=== PATIENT | female | born 1955 | race Hispanic/Latino ===

== ENCOUNTER 2019-03-13 04:08 | Emergency (ER) | payer OTHER ==
[~2019-03-13] VITALS: Ht 162.6 cm; Wt 74.8 kg
--- OUTSIDE RECORDS SUMMARY | 2019-03-13 04:10 | XMS REPORT | Encounter Summary ---
Author Organization Unknown Address [address] [place] [address] Phone [phone] Reason for Visit Right Medical Complaint Instructions 1. Acute tonsillitis tonsillitis: care instructions cefdinir 300 mg capsule Lidocaine Viscous 2 % mucosal solution rapid strep group A, throat culture, respiratory 2. Otalgia of right ear 3. Body mass index 25-29 - overweight body mass index: care instructions 4. Elevated blood-pressure reading without diagnosis of hypertension elevated blood pressure: care instructions Discussion Note Pt is in NAD; Verbalizes understanding of all instructions with no questions at this time. Plan of Care Patient Instructions Stop erythromycin. Gargle and spit viscous lidocaine as needed for sore throat as directed. Alternate with Ibuprofen and acetaminophen every 4hrs as needed for pain/fever. Proper hydration and rest. Take antibiotics as directed. Do not share any utensils/cups, no kissing and change toothbrush after 24-48 hrs of antibiotic use. Take medications as prescribed. Follow up with your PCP within 2-3 days if symptoms worsen as discussed. Recommend monitor BP at home and document, bring BP log to PCP for review. Recommend follow a low sodium/fat/carb diet and exercise 30-45 mins/d 3-4 days a week once symptoms resolve. Reminders Provider Appointments None recorded. Lab Rapid Strep Group a, Throat 01/22/2018 [facility] Culture, Respiratory 01/22/2018 [facility] Referral None recorded. Procedures None recorded. Surgeries None recorded. Imaging None recorded. Medications Name Start Date cefdinir 300 mg capsule Take 1 capsule every 12 hours by oral route as directed for 10 days. dicyclomine 10 mg capsule ergocalciferol (vitamin D2) 50,000 unit capsule famotidine 40 mg tablet TK 1 T PO D fenofibrate 40 mg tablet Take 2 tablets every day by oral route. Lidocaine Viscous 2 % mucosal solution Take 15 mL every 3 hours by oral route. Linzess 72 mcg capsule metoclopramide 10 mg tablet pravastatin 40 mg tablet TK 1 T PO D Premarin 0.625 mg tablet TK 1 T PO D sucralfate 1 gram tablet Medications Administered None recorded. Vitals Height Weight BMI Blood Pressure 5 ft 4 in 152 lbs 26.1 kg/m2 122/80 mm[Hg] Lab Results Date Name Specimen Result Interpretation Description Value Range Status Address Rapid Strep Group a, Throat Result negative [facility]: [address] [place] [address] Swab Location Left and Right tonsillar pillars [facility]: [address] [place] [address] Allergies Code Code System Name Reaction Severity Status Onset 20341123 RxNorm Cipro Active 2669 RxNorm Codeine Active 20420627 RxNorm Skelaxin Active RxNorm Tramadol Active Problems Name Status Onset Date Source Hyperlipidemia Active 01/22/2018 Body Mass Index 25-29 - Overweight Active 01/22/2018 Acute Tonsillitis Active 01/22/2018 Gastritis Active 01/22/2018 Elevated Blood-pressure Reading without Diagnosis of Hypertension Active 01/22/2018 Otalgia of Right Ear Active 01/22/2018 Procedures Date Name Performed by Cholecystectomy Information not available Hysterectomy Information not available Vaccine List Vaccine Type influenza, unspecified formulation 03/19/2017 Tdap 06/23/2016 Social History Smoking Status Never Smoker Past Encounters 01/22/2018 Acute Tonsillitis; Otalgia of Right Ear; Body Mass Index 25-29 - Overweight; Elevated Blood-pressure Reading without Diagnosis of Hypertension Cora Hough, HAMMER OPERATOR-C: [address] [place] [address], Ph. History of Present Illness Throat-Oral Complaint Reported By: Patient HPI: Location: throat. Quality: sore throat. Severity: moderate, pain level 7/10. Duration: 3 days. Onset/Timing: sudden. Context: no sick contacts, non-smoker, foreign travel; Pt reports she went to [place] and saw an MD there and without being tested pt was started on erythromycin with no relief. Modifying factors: OTC medication. Associated Symptoms: no fever, no headache, no body aches, no sputum production, no shortness of breath, no wheezing, no change in number of pillows needed to sleep at night, no sweats, no significant weight gain, no significant weight loss, no morning cough, no vomiting, no diarrhea, no rash, no nausea, sore throat; right ear pain Ear Complaint Reported By: Patient HPI: Location: right. Quality: sharp, aching. Severity: continuous, moderate, current pain 7/10. Duration: constant; X 3 days. Onset/Timing: worse, abrupt onset. Context: no sick contacts, no recent swimming/water in ear, no exposure to second hand smoke, no head trauma, not grinding teeth, no recent air travel. Modifying factors: does not hurt to lie on, or pull on ear, does not hurt to chew, OTC medication. Associated Symptoms: no discharge from the ears, no nose/sinus problems, no popping noise in the ears, no ringing in the ears, no fever, no chills, no dizziness, no vertigo, no headache, no muscle aches, earache; sore throat Review of Systems Basic Reported By: Patient Constitutional: Constitutional: no fever Eyes: Eyes: no eye complaints Aygn-Nnts-Ogjky-Throat: Ears: ear pain. Nose: no nose/sinus problems. Mouth/Throat: no bleeding gums, no mouth complaints, no teeth problems, sore throat Cardiovascular: Cardiovascular: no chest pain, no shortness of breath, no known heart murmur Respiratory: Respiratory: no cough, no wheezing, no shortness of breath Gastrointestinal: Gastrointestinal: no abdominal pain, no vomiting / diarrhea Genitourinary: Genitourinary: no urinary complaints, no discharge Musculoskeletal: Musculoskeletal: no muscle aches, no muscle weakness, no arthralgias/joint pain, no back pain Skin: Skin: no abnormal / changing mole, no jaundice, no rashes Neurologic: Neurologic: no loss of consciousness, no weakness, no numbness, no seizures, no dizziness, no headaches Physical Exam Adult Basic, Adult Female Complete Reported By: Patient Constitutional: General Appearance: healthy-appearing, well-nourished, well-developed, overweight. Level of Distress: NAD. Ambulation: ambulating normally Psychiatric: Mental Status: active and alert. Orientation: to time, to place, to person Rbi-Ldzk-Cscxx-Throat: Ears: no lesions on external ear, no outer ear tenderness, EACs clear, TMs clear. Hearing: no hearing loss. Nose: no lesions on external nose, nares patent, no septal deviation, nasal passages clear, no sinus tenderness, no nasal discharge. Lips, Teeth, and Gums: no mouth or lip ulcers, no bleeding gums, normal dentition. Oropharynx: moist mucous membranes, no exudates, erythema, tonsils enlarged 3+ Neck: Lymph Nodes: no cervical LAD Lungs: Respiratory effort: no dyspnea, no tachypnea, no use of accessory muscles, no intercostal retractions. Auscultation: breath sounds normal Cardiovascular: Heart Auscultation: RRR, no murmurs Neurologic: Gait and Station: normal gait, normal station
--- OUTSIDE RECORDS SUMMARY | 2019-03-13 04:10 | XMS REPORT | Encounter Summary ---
Author Organization Unknown Address [address] [place] [address] Phone [phone] Reason for Visit Medical Complaint Instructions 1. Influenza-like symptoms benzonatate 200 mg capsule rapid flu (A+B) 2. Exposure to Influenzavirus Tamiflu 75 mg capsule 3. Pain in throat sore throat: care instructions rapid strep group A, throat 4. Headache headache: care instructions 5. Body mass index 25-29 - overweight Discussion Note Pt is in NAD; Verbalizes understanding of all instructions with no questions at this time. Plan of Care Patient Instructions Use over the counter chloraseptic spray as per package insert for sore throat. Take fluticasone as needed for congestion. [place] one spray in each nostril twice a day. Take a warm, steamy shower, blow your nose thereafter, and spray in each nostril. Tilt your head up for about 10 seconds and breath through your mouth. Do not sniff or snort the medication in or else the medication will go to your throat and not be absorbed appropriately. Take benzonatate for cough as directed. Take Tamiflu (oseltamivir) as directed for the flu. Alternate with Ibuprofen and acetaminophen every 4hrs as needed for pain/fever/headache. Proper hydration and rest. Return to work/school if free of fever for 24-hrs. Do not share any utensils/cups, no kissing, recommend hand washing after coughing/sneezing/blowing nose and cover face when you do so. Take medications as prescribed. Return to clinic or follow up with your PCP within 2-3 days if symptoms worsen as discussed. Recommend follow a low sodium/fat/carb diet and exercise 30-45 mins/d 3-4 days a week Reminders Provider Appointments None recorded. Lab Rapid Flu (A+B) 07/18/2017 [facility] Rapid Strep Group a, Throat 07/18/2017 [facility] Referral None recorded. Procedures None recorded. Surgeries None recorded. Imaging None recorded. Medications Name Start Date benzonatate 200 mg capsule Take 1 capsule 3 times a day by oral route as needed. famotidine 40 mg tablet TK 1 T PO D fenofibrate nanocrystallized 48 mg tablet TK 1 T PO D Fluvirin 1706-7268 45 mcg (15 mcg x 3)/0.5 mL intramuscular suspension ADM 0.5ML IM UTD gabapentin 300 mg capsule TK 1 C PO BID ibuprofen 600 mg tablet pravastatin 40 mg tablet TK 1 T PO D Premarin 0.625 mg tablet TK 1 T PO QD Tamiflu 75 mg capsule Take 1 capsule every day by oral route as directed for 10 days. Medications Administered None recorded. Vitals Height Weight BMI Blood Pressure 5 ft 4 in 153 lbs 26.3 kg/m2 120/80 mm[Hg] Lab Results Date Name Specimen Result Interpretation Description Value Range Status Address Rapid Strep Group a, Throat Result negative [facility]: [address] [place] [address] Swab Location Left and Right tonsillar pillars [facility]: [address] [place] [address] Rapid Flu (A+B) Influenza a negative [facility]: [address] [place] [address] Influenza B negative [facility]: [address] [place] [address] Allergies Code Code System Name Reaction Severity Status Onset 20341123 RxNorm Cipro Active 2670 RxNorm Codeine Active 498712 RxNorm Skelaxin Active 53829 RxNorm Tramadol Active Problems None recorded. Procedures Date Name Performed by Cholecystectomy Information not available Hysterectomy Information not available Vaccine List Vaccine Type influenza, unspecified formulation 03/19/2017 Social History Smoking Status Never Smoker Past Encounters 07/18/2017 Influenza-like Symptoms; Exposure to Influenzavirus; Pain in Throat; Headache; Body Mass Index 25-29 - Overweight Cora Hough, [facility]-C: [address] [place] [address], Ph. History of Present Illness Uvudhtk-Wjdry-Uhw Reported By: Patient HPI: Quality: symptoms worse during the day. Duration: 1 days. Severity: subjective temperature. Context: no tick/insect bites, no recent travel, no new medications, ill contacts. Associated Symptoms: no fever/chills, no muscle aches, no rash, no lethargy, headache, cough; body aches, fever, headache, and sore throat. Modifying Factors nothing gives relief Review of Systems:ROS as noted in the HPI Review of Systems Basic Reported By: Patient Physical Exam Adult Basic, Adult Female Complete, Adult Male Complete Reported By: Patient Constitutional: General Appearance: healthy-appearing, well-nourished, well-developed, overweight. Level of Distress: NAD. Ambulation: ambulating normally Psychiatric: Mental Status: active and alert. Orientation: to time, to place, to person Eyes: Lids and Conjunctivae: non-injected, no discharge, no pallor. Pupils: PERRLA. Corneas: grossly intact. EOM: EOMI. Lens: clear. Vision: peripheral vision grossly intact Mbk-Tqpk-Dxygj-Throat: Ears: no lesions on external ear, no outer ear tenderness, EACs clear, TMs clear. Hearing: no hearing loss. Nose: no lesions on external nose, nares patent, no septal deviation, nasal passages clear, no sinus tenderness, nasal discharge--rhinorrhea, post nasal drip. Lips, Teeth, and Gums: no mouth or lip ulcers, no bleeding gums, normal dentition. Oropharynx: moist mucous membranes, no erythema, no exudates, tonsils not enlarged Neck: Neck: supple. Lymph Nodes: no cervical LAD Lungs: Respiratory effort: no dyspnea, no tachypnea, no use of accessory muscles, no intercostal retractions. Auscultation: breath sounds normal, good air movement Cardiovascular: Heart Auscultation: RRR, no murmurs Neurologic: Gait and Station: normal gait, normal station. Cranial Nerves: grossly intact. Sensation: grossly intact. Reflexes: DTRs 2+ bilaterally throughout. Coordination and Cerebellum: [id number] intact, no tremor
--- OUTSIDE RECORDS SUMMARY | 2019-03-13 04:10 | XMS REPORT | Continuity of Care Document ---
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 Name Role Phone Colatris Unavailable Unavailable Problems Problem Status Onset Date Classification Date Reported Comments Source Body mass index 25-29 - overweight 01/22/2018 Problem 01/22/2018 [facility] Hyperlipidemia 01/22/2018 Problem 01/22/2018 [facility] Acute tonsillitis 01/22/2018 Problem 01/22/2018 [facility] Gastritis 01/22/2018 Problem 01/22/2018 [facility] Elevated blood-pressure reading without diagnosis of hypertension 01/22/2018 Problem 01/22/2018 [facility] Otalgia of right ear 01/22/2018 Problem 01/22/2018 [facility] Influenza-like symptoms 07/18/2017 Diagnosis 07/18/2017 [facility] Exposure to Influenzavirus 07/18/2017 Diagnosis 07/18/2017 [facility] Pain in throat 07/18/2017 Diagnosis 07/18/2017 [facility] Headache 07/18/2017 Diagnosis 07/18/2017 [facility] Medications Medication Details Route Status Patient Instructions Ordering Provider Order Date Source benzonatate 200 MG Oral Capsule benzonatate 200 mg capsule Take 1 capsule 3 times a day by oral route as needed. Active [facility] Famotidine 40 MG Oral Tablet famotidine 40 mg tablet TK 1 T PO D Active [facility] Fenofibrate 48 MG Oral Tablet fenofibrate nanocrystallized 48 mg tablet TK 1 T PO D Active [facility] influenza A virus A/[place]/ (H3N2) antigen 0.03 MG/ML / influenza A virus A/[place]/SX3236/2015 (H1N1) antigen 0.03 MG/ML / influenza B virus B/[place]/ antigen 0.03 MG/ML Injectable Suspension [Fluvirin [id number]] Fluvirin 7421-5391 45 mcg (15 mcg x 3)/0.5 mL intramuscular suspension ADM 0.5ML IM UTD Active [facility] gabapentin 300 MG Oral Capsule gabapentin 300 mg capsule TK 1 C PO BID Active [facility] Ibuprofen 600 MG Oral Tablet ibuprofen 600 mg tablet Active [facility] Pravastatin Sodium 40 MG Oral Tablet pravastatin 40 mg tablet TK 1 T PO D Active [facility] Estrogens, Conjugated ([facility]) 0.625 MG Oral Tablet [Premarin] Premarin 0.625 mg tablet TK 1 T PO D Active [facility] Oseltamivir 75 MG Oral Capsule [Tamiflu] Tamiflu 75 mg capsule Take 1 capsule every day by oral route as directed for 10 days. Active [facility] cefdinir 300 MG Oral Capsule cefdinir 300 mg capsule Take 1 capsule every 12 hours by oral route as directed for 10 days. Active [facility] Dicyclomine Hydrochloride 10 MG Oral Capsule dicyclomine 10 mg capsule Active [facility] Ergocalciferol 17863 UNT Oral Capsule ergocalciferol (vitamin D2) 50,000 unit capsule Active [facility] Fenofibrate 40 MG Oral Tablet fenofibrate 40 mg tablet Take 2 tablets every day by oral route. Active [facility] Lidocaine Hydrochloride 20 MG/ML Mucous Membrane Topical Solution Lidocaine Viscous 2 % mucosal solution Take 15 mL every 3 hours by oral route. Active [facility] linaclotide 0.072 MG Oral Capsule [Linzess] Linzess 72 mcg capsule Active [facility] Metoclopramide 10 MG Oral Tablet metoclopramide 10 mg tablet Active [facility] Sucralfate 1000 MG Oral Tablet sucralfate 1 gram tablet Active [facility] Allergies, Adverse Reactions, Alerts Substance Category Reaction Severity Reaction type Status Date Reported Comments Source Cipro Allergy to substance 07/18/2017 [facility] Tramadol Allergy to substance 07/18/2017 [facility] Skelaxin Allergy to substance 07/18/2017 [facility] Codeine Allergy to substance 07/18/2017 [facility] Immunizations Immunization Date Given Site Status Last Updated Comments Source influenza, unspecified formulation 03/19/2017 completed [facility] Tdap 06/23/2016 completed [facility] Results Order Name Results Value Reference Range Date Interpretation Comments Source RESULT negative 01/22/2018 [facility] SWAB LOCATION Left and Right tonsillar pillars 01/22/2018 [facility] RESULT negative 07/18/2017 [facility] SWAB LOCATION Left and Right tonsillar pillars 07/18/2017 [facility] Influenza A negative 07/18/2017 [facility] Influenza B negative 07/18/2017 [facility] Pathology Reports No Data Provided for This Section Diagnostic Reports No Data Provided for This Section Consultation Notes No Data Provided for This Section Discharge Summaries No Data Provided for This Section History and Physicals No Data Provided for This Section Vital Signs Vital Sign Value Date Comments Source Diastolic (mm Hg) 80 01/22/2018 [facility] Height 64 01/22/2018 [facility] Systolic (mm Hg) 122 01/22/2018 [facility] Weight 152 01/22/2018 [facility] Diastolic (mm Hg) 80 07/18/2017 [facility] Height 64 07/18/2017 [facility] Systolic (mm Hg) 120 07/18/2017 [facility] Weight 153 07/18/2017 [facility] Encounters Location Location Details Encounter Type Encounter Number Reason For Visit Attending Provider ADM Date DC Date Status Source [place] - [facility] - [id number] Corakang Hough, HEALTH AND WELLNESS ADVISOR-C: [address] [place] [address], Ph. [id number] Cora France 07/18/2017 [facility] [place] - [facility] - [id number] Cora Hough, HEALTH AND WELLNESS ADVISOR-C: [address] [place] [address], Ph. [id number] Cora Hough 01/22/2018 [facility] Procedures Procedure Code Date Perfomer Comments Source Cholecystectomy [facility] Hysterectomy [facility] Assessment and Plan No Data Provided for This Section Plan of Care No Data Provided for This Section Social History Social History Date Source Smoking Status Never Smoker 07/18/2017 [facility] Family History No Data Provided for This Section Advance Directives No Data Provided for This Section Functional Status No Data Provided for This Section
[2019-03-13 04:35] LABS: BASOPHILS % 0.6 % (0.0-1.0); EOSINOPHILS # (AUTO) 0.1 (0.0-0.4); EOSINOPHILS % 2.1 % (0.0-6.0); HEMATOCRIT 38.9 % (34.2-44.1); HEMOGLOBIN 13.6 g/dL (12.0-16.0); LYMPHOCYTES # (AUTO) 2.5 (1.0-3.2); LYMPHOCYTES % 51.3 % (18.0-39.1); MEAN CORPUSCULAR HEMOGLOBIN 32.5 pg (28-32); MEAN CORPUSCULAR VOLUME 92.8 fL (81-99); MONOCYTES # (AUTO) 0.4 (0.2-0.8); MONOCYTES % 7.9 % (4.4-11.3); NEUTROPHILS # (AUTO) 1.8 (2.1-6.9); NEUTROPHILS % 37.9 % (38.7-80.0); PLATELET COUNT 173 x10e3/uL (140-360); RED BLOOD COUNT 4.19 x10e6/uL (3.6-5.1); RED CELL DISTRIBUTION WIDTH 12.1 % (11.7-14.4)
[2019-03-13 04:47] LABS: CLARITY,URINE CLEAR (CLEAR); COLOR,URINE YELLOW (YELLOW)
[2019-03-13 04:48] LABS: BACTERIA,URINE MODERATE /HPF; BILIRUBIN,URINE NEGATIVE (NEGATIVE); EPITHELIAL CELLS,URINE MODERATE /LPF; KETONES,URINE NEGATIVE (NEGATIVE); LEUKOCYTE ESTERASE ,URINE NEGATIVE (NEGATIVE); NITRITE,URINE NEGATIVE (NEGATIVE); PROTEIN,URINE DIPSTICK NEGATIVE (NEGATIVE); RBC,URINE 0-5 /HPF (0-5); URINE UROBILINOGEN 0.2 mg/dL (0.2 - 1); WBC,URINE (MAN) 0-5 /HPF (0-5)
[2019-03-13 04:49] LABS: AMORPHOUS SEDIMENT,URINE MODERATE (FEW)
[2019-03-13 04:53] LABS: ANION GAP 12.7 mmol/L (8-16); BLOOD UREA NITROGEN 9 mg/dL (7-26); BUN/CREATININE RATIO 12 (6-25); CALCIUM 9.6 mg/dL (8.4-10.2); CARBON DIOXIDE 24 mmol/L (22-29); CHLORIDE 107 mmol/L (98-107); CREATININE, SERUM 0.75 mg/dL (0.57-1.11); EST GLOMERULAR FILTRATION RATE > 60 ML/MIN (60-); GLUCOSE 97 mg/dL (74-118); POTASSIUM 3.7 mmol/L (3.5-5.1); SODIUM 140 mmol/L (136-145)
[2019-03-13 05:00] VITALS: BP 121/83
== END 2019-03-13 05:11 | disposition home or self-care (01) ==
LOC: ER 04:08
DX: M79.662 Pain in left lower leg (principal); M79.661 Pain in right lower leg; E78.5 Hyperlipidemia, unspecified
CPT/HCPCS: 36415; 80048; 81001; 82550; 85025; 99283

== ENCOUNTER 2023-10-13 13:25 | Emergency (ER) | payer OTHER ==
[~2023-10-13] VITALS: Ht 162.6 cm; Wt 66.7 kg
[2023-10-13] MEDS ORDERED: LISINOPRIL5 MG PO (13:53)
[2023-10-13] MEDS ORDERED: ATORVASTATIN CA20 MG PO (13:53)
[2023-10-13] MEDS ORDERED: PREMARIN0.625 MG PO (13:53)
[2023-10-13] MEDS ORDERED: NEURONTIN100 MG PO (13:53)
[2023-10-13] MEDS ORDERED: TRICOR48 MG PO (13:53)
[2023-10-13] MEDS: KETOROLAC TROMETHAMINE 30 MG/ML VIAL IV STA (14:42)
[2023-10-13] MEDS: SODIUM CHLORIDE 0.9% 1000ML 1,000 ML IV SCH (14:43)
[2023-10-13 16:16] VITALS: O2SAT 98
[2023-10-13] MEDS ORDERED: CEFUROXIME500 MG PO (16:16)
[2023-10-13] MEDS ORDERED: PHENAZOPYRIDIN200 MG PO (16:18)
== END 2023-10-13 16:39 | disposition home or self-care (01) ==
LOC: FSED 13:31
DX: R30.0 Dysuria (principal); N30.01 Acute cystitis with hematuria; N20.0 Calculus of kidney; I10 Essential (primary) hypertension; E78.5 Hyperlipidemia, unspecified
CPT/HCPCS: 74176; 87086; 87186; 99284

== ENCOUNTER → 2024-12-06 | Outpatient (REF) | payer MEDICARE ==
[~2024-12-06] MED LIST: ATORVASTATIN CA20 MG PO; CEFUROXIME500 MG PO; LISINOPRIL5 MG PO; NEURONTIN100 MG PO; PHENAZOPYRIDIN200 MG PO; PREMARIN0.625 MG PO; TRICOR48 MG PO
== END ==
LOC: RAD 15:33
PROVIDERS: ATTEND Family Medicine
DX: M65.351 Trigger finger, right little finger (principal); M25.551 Pain in right hip; M77.9 Enthesopathy, unspecified

== ENCOUNTER 2025-03-20 15:23 | Emergency (ER) | payer MEDICARE ==
[~2025-03-20] VITALS: Ht 162.6 cm; Wt 66.8 kg
[2025-03-20] MEDS ORDERED: ESTRACE42.5 GM VG (16:19)
[2025-03-20] MEDS: KETOROLAC TROMETHAMINE 30 MG/ML VIAL IV STA (17:54)
[2025-03-20 18:36] VITALS: PULSE 71; RESP 16; TEMP 97.9
[2025-03-20] MEDS ORDERED: CEFUROXIME250 MG PO (18:50)
[2025-03-20] MEDS ORDERED: PYRIDIUM200 MG PO (18:52)
[2025-03-20 19:08] VITALS: BP 121/67; O2SAT 98
== END 2025-03-20 19:11 | disposition home or self-care (01) ==
LOC: FSED 16:17
DX: R30.0 Dysuria (principal); N39.0 Urinary tract infection, site not specified; M54.50 Low back pain, unspecified; I10 Essential (primary) hypertension; E78.5 Hyperlipidemia, unspecified; Z87.442 Personal history of urinary calculi
CPT/HCPCS: 74176; 80053; 81003; 85025; 96374; 99284; J1885